=== PATIENT | male | born 1955 ===

== ENCOUNTER 2024-11-21 11:35 | Outpatient (CLI) | payer MEDICARE, MEDICAID, SELFPAY ==
--- NOTE | ~2024-11-21 | XR_ITS ---
HISTORY: Left shoulder pain COMPARISON: None TECHNIQUE: 3 views of the left shoulder were performed FINDINGS: No acute fracture. The glenohumeral joint space is maintained. Significant degenerative disease is identified within the acromioclavicular joint space, with osteoph yte formation and joint space narrowing. The visualized portion of the adjacent left lung is clear. The humeral head is well seated within the glenoid fossa. 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 Reviewed, dictated and finalized at location A. IMPRESSION: Degenerative disease within the acromioclavicular joint space, without acute fr acture or anterior dislocation.
== END 2024-11-21 11:36 | disposition home or self-care (01) ==
LOC: MICIMG 11:44
PROVIDERS: PCP Nurse Practitioner Family; Visit Provider Nurse Practitioner Family
DX: M19.012 Primary osteoarthritis, left shoulder (principal)
CPT/HCPCS: 73030